=== PATIENT | male | born 1970 | race African-American/Black ===

== ENCOUNTER 2018-03-22 09:12 | Emergency (ER) | payer SELFPAY ==
[~2018-03-22] VITALS: Ht 188 cm; Wt 117.0 kg
[2018-03-22 09:17] VITALS: BP 138/81; Ht 188 cm; Wt 117.0 kg
== END 2018-03-22 11:19 | disposition home or self-care (01) ==
LOC: ED 09:12
DX: B95.62 Methicillin resistant Staphylococcus aureus infection as the cause of diseases classified elsewhere (principal); L02.01 Cutaneous abscess of face
CPT/HCPCS: J2001; J3490